=== PATIENT | female | born 1980 | race African-American/Black ===

== ENCOUNTER 2017-04-10 06:23 | Day surgery (SDC) | payer BC ==
[~2017-04-10] VITALS: Ht 170.2 cm; Wt 95.3 kg
[~2017-04-10 06:23] MED LIST: AUGMENTIN875TAB PO; AUGMENTINES600 PO; BACTRIM DS1 TAB PO; BENADRYL 50MG C50 MG PO; CEPHALEXIN500 MG PO; CYCLOBENZAPR10 MG PO; DICLOXACILL500 MG PO; DOXYCYCL HYC100 MG PO; FERR SULFATE325 MG PO; FLEXERIL PO; HYCODAN1 ML OR; HYDROCORTISO2.51 EX; IBUPROFEN600 MG PO; KEFLEX500 M1 PO; LORTAB 7.57.5 MG PO; MEDDOSEPAK PO; MEDROL4 M1 OR; MOTRIN800 MG PO; NAPROSYN500 MG PO; NAPROXEN500 MG PO; NO MEDS; PEPCID20 MG PO; PRENATA9 PO; PROCARDIA10 MG PO; PROTONIX40 M2 PO; RANITIDINE75 MG/5 M1 PO; SOLU-MEDROL125 MG IM; TRIAMCINOLON0.11 EX; ULTRAM50 M1 PO; ZOFRAN4 M1 PO
[2017-04-10] MEDS ORDERED: LORTAB 7.5-3251 TAB PO (10:32)
[2017-04-10 11:33] VITALS: BP 121/62
== END 2017-04-10 11:15 | disposition home or self-care (01) | DRG 337 ==
LOC: ORM 06:23
PROVIDERS: ATTEND Obstetrics & Gynecology
PROC: 0DNS4ZZ (ICD-10-PCS; principal; 2017-04-10)
DX: R10.2 Pelvic and perineal pain (principal); E66.9 Obesity, unspecified; N99.4 Postprocedural pelvic peritoneal adhesions; N94.10 Unspecified dyspareunia; K58.9 Irritable bowel syndrome, unspecified; Z68.34 Body mass index [BMI] 34.0-34.9, adult; Z01.818 Encounter for other preprocedural examination; K21.9 Gastro-esophageal reflux disease without esophagitis; R10.30 Lower abdominal pain, unspecified

== ENCOUNTER 2017-12-06 10:41 | Emergency (ER) | payer BC ==
[~2017-12-06] VITALS: Ht 170.2 cm; Wt 997.0 kg
[~2017-12-06 10:41] MED LIST changes: +LORTAB 7.5-3251 TAB PO
[2017-12-06 12:02] LABS: URINE BILIRUBIN - DIPSTICK NEGATIVE (NEGATIVE); URINE BLOOD DIPSTICK NEGATIVE (NEGATIVE); URINE COLOR YELLOW; URINE GLUCOSE - DIPSTICK NEGATIVE (NEGATIVE); URINE KETONE NEGATIVE (NEGATIVE); URINE LEUK ESTERASE NEGATIVE (NEGATIVE); URINE NITRITE - DIPSTICK NEGATIVE (Negative); URINE PROTEIN - DIPSTICK NEGATIVE (NEG-TRACE); URINE UROBILINOGEN - DIPSTICK 0.2 E.U./dL (0.2)
[2017-12-06 12:10] LABS: URINE CLARITY CLEAR
[2017-12-06 12:19] LABS: ALBUMIN 4.3 g/dL (3.2-5.0); ALKALINE PHOSPHATASE 88 u/l (38-126); ANION GAP 15 (6-22 (CALC)); BILIRUBIN, TOTAL 0.5 mg/dL (0.0-1.4); BUN 8 mg/dL (7-17); BUN/CREATININE RATIO 14 (12-20 (CALC)); CALCIUM 9.8 mg/dL (8.4-10.2); CARBON DIOXIDE 27 mmol/l (22-30); CHLORIDE 104 mmol/l (95-108); CREATININE 0.6 mg/dL (0.5-1.0); GFR > 60 ML/MIN (>=60 (CALC)); GFR FOR AFR.AMER. > 60 ML/MIN (>=60 (CALC)); GLUCOSE 78 mg/dL (65-105); POTASSIUM 3.6 mmol/l (3.5-5.1); SGOT/AST 37 u/l (14-36); SGPT/ALT 39 u/l (9-52); SODIUM 142 mmol/l (137-146); TOTAL PROTEIN 7.1 g/dL (6.3-8.2)
[2017-12-06 13:08] LABS: HEMATOCRIT 37.2 % (37.0-47.0); HEMOGLOBIN 11.9 g/dl (12.0-16.0); IMMATURE GRANULOCYTES 0.2 % (0.0-1.0); MEAN CELL VOLUME 86.9 fL CALC (80.0-100.0); MEAN CORPUSCULAR HGB 27.8 pG CALC (26.0-32.0); NEUT# 2.29 thou/uL (2.00-7.15); RED BLOOD COUNT 4.28 mill/uL (4.20-5.60); RED CELL DISTRI WIDTH 14.6 % (11.5-15.5)
[2017-12-06] MEDS ORDERED: ANUCORT-HC25 MG RE (13:49)
[2017-12-06] MEDS ORDERED: ULTRAM50 M1 PO (13:49)
[2017-12-06 13:57] VITALS: BP 126/87
== END 2017-12-06 14:12 | disposition home or self-care (01) | DRG 392 ==
LOC: ED 10:41
PROVIDERS: Emergency Medicine
DX: K59.00 Constipation, unspecified (principal); K64.9 Unspecified hemorrhoids

== ENCOUNTER 2018-01-11 08:10 | Day surgery (SDC) | payer BC ==
[~2018-01-11] VITALS: Ht 170.2 cm; Wt 94.8 kg
[~2018-01-11 08:10] MED LIST changes: +ANUCORT-HC25 MG RE; +LIPITOR20 MG PO; +PANTOPRAZOLE SO40 MG PO
[2018-01-11 10:58] VITALS: BP 135/70
== END 2018-01-11 11:14 | disposition home or self-care (01) | DRG 394 ==
LOC: ENDO 08:10 → ORM 08:30 → ENDO 10:45
PROVIDERS: ATTEND Internal Medicine Gastroenterology
PROC: 0DBL8ZX Excision of Transverse Colon, Via Natural or Artificial Opening Endoscopic, Diagnostic (ICD-10-PCS; principal; 2018-01-11)
DX: K62.89 Other specified diseases of anus and rectum (principal); K92.1 Melena; K21.9 Gastro-esophageal reflux disease without esophagitis; K59.00 Constipation, unspecified; R10.33 Periumbilical pain; R11.0 Nausea; R14.0 Abdominal distension (gaseous); R63.4 Abnormal weight loss; R19.4 Change in bowel habit; K64.4 Residual hemorrhoidal skin tags; K63.5 Polyp of colon; K64.8 Other hemorrhoids

== ENCOUNTER 2018-04-16 06:57 | Day surgery (SDC) | payer BC ==
[~2018-04-16] VITALS: Ht 170.2 cm; Wt 87.1 kg
[~2018-04-16 06:57] MED LIST changes: +COLACE100 MG PO
[2018-04-16] MEDS ORDERED: PERCOCET 5/325M1 TAB PO (09:18)
[2018-04-16 10:14] VITALS: BP 144/85
== END 2018-04-16 10:50 | disposition home or self-care (01) | DRG 349 ==
LOC: ORM 06:57
PROVIDERS: ATTEND Surgery
PROC: 06BY0ZC Excision of Hemorrhoidal Plexus, Open Approach (ICD-10-PCS; principal; 2018-04-16)
DX: K64.8 Other hemorrhoids (principal)
CPT/HCPCS: C9290

== ENCOUNTER 2018-09-06 06:24 | Day surgery (SDC) | payer BC ==
[~2018-09-06] VITALS: Ht 170.2 cm; Wt 81.6 kg
[~2018-09-06 06:24] MED LIST changes: +ALLERGY RELF10 M3 PO; +PERCOCET 5/325M1 TAB PO; +STOOL SOFTE1 PO
[2018-09-06 08:02] VITALS: BP 124/80
== END 2018-09-06 08:20 | disposition home or self-care (01) | DRG 392 ==
LOC: ENDO 06:24 → ORM 13:15 → ENDO 13:15
PROVIDERS: ATTEND Internal Medicine Gastroenterology
PROC: 0DB98ZX Excision of Duodenum, Via Natural or Artificial Opening Endoscopic, Diagnostic (ICD-10-PCS; principal; 2018-09-06)
PROC: 0DB78ZX Excision of Stomach, Pylorus, Via Natural or Artificial Opening Endoscopic, Diagnostic (ICD-10-PCS; 2018-09-06)
DX: K29.50 Unspecified chronic gastritis without bleeding (principal); K31.7 Polyp of stomach and duodenum; Q40.8 Other specified congenital malformations of upper alimentary tract; K21.9 Gastro-esophageal reflux disease without esophagitis; B96.81 Helicobacter pylori [H. pylori] as the cause of diseases classified elsewhere; Z86.010 Personal history of colon polyps

== ENCOUNTER → 2019-01-10 | Outpatient (REF) | END | disposition home or self-care (01) | DRG 392 | LOC: LABSPEC 08:53 | PROVIDERS: ATTEND Internal Medicine Gastroenterology | DX: K29.70 Gastritis, unspecified, without bleeding (principal); B96.81 Helicobacter pylori [H. pylori] as the cause of diseases classified elsewhere ==

== ENCOUNTER → 2019-01-24 | Outpatient (REF) | END | disposition home or self-care (01) | DRG 392 | LOC: LABSPEC 21:14 | PROVIDERS: ATTEND Internal Medicine Gastroenterology | DX: R19.5 Other fecal abnormalities (principal) ==

== ENCOUNTER 2019-05-06 07:15 | Day surgery (SDC) | payer BC ==
[~2019-05-06] VITALS: Ht 170.2 cm; Wt 80.7 kg
[~2019-05-06 07:15] MED LIST changes: +COLESTIPOL1 GM PO; +LIPITOR10 M1 PO; +MULTI FOR HER PO
[2019-05-06] MEDS ORDERED: PERCOCET 5/325M1 TAB PO (09:16)
[2019-05-06 09:55] VITALS: BP 136/75
== END 2019-05-06 10:15 | disposition home or self-care (01) | DRG 349 ==
LOC: ORM 07:15
PROVIDERS: ATTEND Surgery
PROC: 06BY3ZC Excision of Hemorrhoidal Plexus, Percutaneous Approach (ICD-10-PCS; principal; 2019-05-06)
PROC: 0DJD8ZZ Inspection of Lower Intestinal Tract, Via Natural or Artificial Opening Endoscopic (ICD-10-PCS; 2019-05-06)
DX: K64.4 Residual hemorrhoidal skin tags (principal)
CPT/HCPCS: C9290

== ENCOUNTER 2020-12-23 12:38 | Emergency (ER) | payer BC ==
[~2020-12-23] VITALS: Ht 170.2 cm; Wt 86.5 kg
[2020-12-23] MEDS ORDERED: NAPROXEN500 MG PO (14:14)
[2020-12-23 14:30] VITALS: BP 120/73
== END 2020-12-23 14:30 | disposition home or self-care (01) | DRG 563 ==
LOC: ED 12:38
DX: S93.402A Sprain of unspecified ligament of left ankle, initial encounter (principal); K21.9 Gastro-esophageal reflux disease without esophagitis; W20.8XXA Other cause of strike by thrown, projected or falling object, initial encounter; Y93.G1 Activity, food preparation and clean up; Y92.000 Kitchen of unspecified non-institutional (private) residence as the place of occurrence of the external cause

== ENCOUNTER 2021-04-30 12:28 | Emergency (ER) | payer BC ==
[~2021-04-30] VITALS: Ht 170.2 cm; Wt 81.8 kg
[2021-04-30 13:25] LABS: HEMATOCRIT 37.3 % (37.0-47.0); IMMATURE GRANULOCYTES 0.2 % (0.0-5.0); MEAN CELL VOLUME 88.6 fL CALC (80.0-100.0); MEAN CORPUSCULAR HGB 28.5 pG CALC (26.0-32.0); MEAN CORPUSCULAR HGB CONC 32.2 g/dL CAL (32.0-36.0); NEUT# 3.49 thou/uL (2.00-7.15); RED BLOOD COUNT 4.21 mill/uL (4.20-5.60); RED CELL DISTRI WIDTH 13.7 % (11.5-15.5)
[2021-04-30 13:32] LABS: ALBUMIN 3.8 g/dL (3.2-5.0); ALKALINE PHOSPHATASE 79 u/l (38-126); ANION GAP 9 (6-22 (CALC)); BILIRUBIN, TOTAL 0.4 mg/dL (0.0-1.4); BUN 8 mg/dL (7-17); BUN/CREATININE RATIO 14 (12-20 (CALC)); CARBON DIOXIDE 33 mmol/l (22-30); CHLORIDE 96 mmol/l (95-108); CREATININE 0.6 mg/dL (0.5-1.0); GFR > 60 ML/MIN (>=60 (CALC)); GFR FOR AFR.AMER. > 60 ML/MIN (>=60 (CALC)); POTASSIUM 3.2 mmol/l (3.5-5.1); SGOT/AST 22 u/l (14-36); SODIUM 135 mmol/l (137-146); TOTAL PROTEIN 7.5 g/dL (6.3-8.2)
[2021-04-30 16:30] VITALS: BP 115/63
== END 2021-04-30 16:31 | disposition home or self-care (01) | DRG 313 ==
LOC: ED 12:28
PROVIDERS: Emergency Medicine
DX: R07.89 Other chest pain (principal); R59.0 Localized enlarged lymph nodes; E87.6 Hypokalemia; E78.5 Hyperlipidemia, unspecified; K21.9 Gastro-esophageal reflux disease without esophagitis; Z98.890 Other specified postprocedural states
CPT/HCPCS: Q9967

== ENCOUNTER 2021-08-23 12:20 | Inpatient (IN) | payer BC ==
[~2021-08-23] VITALS: Ht 170.2 cm; Wt 80.0 kg
[2021-08-23 13:33] LABS: HEMATOCRIT 41.3 % (37.0-47.0); HEMOGLOBIN 12.8 g/dl (12.0-16.0); MEAN CELL VOLUME 87.3 fL CALC (80.0-100.0); MEAN CORPUSCULAR HGB 27.1 pG CALC (26.0-32.0); NEUT# 3.03 thou/uL (2.00-7.15); RED BLOOD COUNT 4.73 mill/uL (4.20-5.60); RED CELL DISTRI WIDTH 16.4 % (11.5-15.5)
[2021-08-23 13:44] LABS: ALBUMIN 4.2 g/dL (3.2-5.0); ALKALINE PHOSPHATASE 77 u/l (38-126); BUN 11 mg/dL (7-17); BUN/CREATININE RATIO 18 (12-20 (CALC)); CARBON DIOXIDE 32 mmol/l (22-30); CHLORIDE 99 mmol/l (95-108); CREATININE 0.6 mg/dL (0.5-1.0); GFR > 60 ML/MIN (>=60 (CALC)); GFR FOR AFR.AMER. > 60 ML/MIN (>=60 (CALC)); SODIUM 139 mmol/l (137-146); TOTAL PROTEIN 8.3 g/dL (6.3-8.2)
[2021-08-23 13:45] LABS: ANION GAP 12 (6-22 (CALC)); SGOT/AST 72 u/l (14-36)
[2021-08-23 13:55] LABS: MYOGLOBIN 186 ng/mL (0 - 62)
[2021-08-23 19:21] VITALS: BP 112/81
[2021-08-24] VITALS: BP 99/74
[2021-08-24 00:58] LABS: URINE BILIRUBIN - DIPSTICK NEGATIVE (NEGATIVE); URINE BLOOD DIPSTICK NEGATIVE (NEGATIVE); URINE COLOR YELLOW; URINE GLUCOSE - DIPSTICK NEGATIVE (NEGATIVE); URINE KETONE NEGATIVE (NEGATIVE); URINE LEUK ESTERASE NEGATIVE (NEGATIVE); URINE PH 5.5 (4.5-8.0); URINE PROTEIN - DIPSTICK 100 mg/dL (NEG-TRACE); URINE SPECIFIC GRAVITY 1.025; URINE UROBILINOGEN - DIPSTICK 0.2 E.U./dL (0.2)
[2021-08-24 01:02] LABS: URINE NITRITE - DIPSTICK NEGATIVE (Negative)
[2021-08-24 01:18] LABS: URINE SQUAMOUS EPITHELIAL CELL FEW EPI/hpf (0-FEW)
[2021-08-24 04:00] VITALS: BP 112/79
[2021-08-24 05:35] LABS: ALBUMIN 3.8 g/dL (3.2-5.0); ALKALINE PHOSPHATASE 72 u/l (38-126); ANION GAP 13 (6-22 (CALC)); BILIRUBIN, TOTAL 0.7 mg/dL (0.0-1.4); BUN 15 mg/dL (7-17); BUN/CREATININE RATIO 31 (12-20 (CALC)); C-REACTIVE PROTEIN 4.1 mg/dL (0-0.9); CARBON DIOXIDE 28 mmol/l (22-30); CHLORIDE 104 mmol/l (95-108); CREATININE 0.5 mg/dL (0.5-1.0); GFR > 60 ML/MIN (>=60 (CALC)); GFR FOR AFR.AMER. > 60 ML/MIN (>=60 (CALC)); POTASSIUM 4.3 mmol/l (3.5-5.1); SGOT/AST 50 u/l (14-36); SODIUM 140 mmol/l (137-146); TOTAL PROTEIN 7.2 g/dL (6.3-8.2)
[2021-08-24 05:41] LABS: HEMATOCRIT 39.8 % (37.0-47.0); HEMOGLOBIN 12.3 g/dl (12.0-16.0); IMMATURE GRANULOCYTES 0.5 % (0.0-5.0); MEAN CELL VOLUME 87.5 fL CALC (80.0-100.0); MEAN CORPUSCULAR HGB CONC 30.9 g/dL CAL (32.0-36.0); NEUT# 1.11 thou/uL (2.00-7.15); RED BLOOD COUNT 4.55 mill/uL (4.20-5.60); RED CELL DISTRI WIDTH 16.3 % (11.5-15.5)
[2021-08-24 09:19] VITALS: BP 102/73
[2021-08-24] MEDS ORDERED: KEFLEX500 MG PO (10:36)
[2021-08-24] MEDS ORDERED: DIFLUCAN150 MG PO (10:36)
[2021-08-24] MEDS ORDERED: ALBUTEROL108 MCG/AC IN (10:37)
[2021-08-24] MEDS ORDERED: ATORVASTATIN CA20 MG PO (10:38)
[2021-08-24] MEDS ORDERED: PROMETHAZIN1 PO (10:38)
[2021-08-24 12:00] VITALS: BP 101/67
[2021-08-24 16:11] VITALS: BP 105/70
[2021-08-24 19:00] VITALS: BP 100/71
[2021-08-25 00:09] VITALS: BP 156/72
[2021-08-25 04:00] VITALS: BP 144/71
[2021-08-25 05:26] LABS: HEMATOCRIT 38.3 % (37.0-47.0); HEMOGLOBIN 12.1 g/dl (12.0-16.0); IMMATURE GRANULOCYTES 0.9 % (0.0-5.0); MEAN CELL VOLUME 87.8 fL CALC (80.0-100.0); MEAN CORPUSCULAR HGB 27.8 pG CALC (26.0-32.0); MEAN CORPUSCULAR HGB CONC 31.6 g/dL CAL (32.0-36.0); NEUT# 3.19 thou/uL (2.00-7.15); RED BLOOD COUNT 4.36 mill/uL (4.20-5.60); RED CELL DISTRI WIDTH 16.2 % (11.5-15.5)
[2021-08-25 05:36] LABS: ALBUMIN 3.4 g/dL (3.2-5.0); ALKALINE PHOSPHATASE 63 u/l (38-126); ANION GAP 11 (6-22 (CALC)); BILIRUBIN, TOTAL 0.5 mg/dL (0.0-1.4); BUN 16 mg/dL (7-17); BUN/CREATININE RATIO 38 (12-20 (CALC)); CARBON DIOXIDE 28 mmol/l (22-30); CHLORIDE 105 mmol/l (95-108); CREATININE 0.4 mg/dL (0.5-1.0); GFR > 60 ML/MIN (>=60 (CALC)); GFR FOR AFR.AMER. > 60 ML/MIN (>=60 (CALC)); SGOT/AST 33 u/l (14-36); SODIUM 140 mmol/l (137-146); TOTAL PROTEIN 6.6 g/dL (6.3-8.2)
[2021-08-25 08:21] VITALS: BP 105/67
[2021-08-25 14:57] VITALS: BP 106/65
[2021-08-25 19:00] VITALS: BP 116/71
[2021-08-26 00:02] VITALS: BP 103/65
[2021-08-26 04:00] VITALS: BP 113/66
[2021-08-26 05:27] LABS: HEMATOCRIT 38.4 % (37.0-47.0); HEMOGLOBIN 11.9 g/dl (12.0-16.0); IMMATURE GRANULOCYTES 0.9 % (0.0-5.0); MEAN CELL VOLUME 87.7 fL CALC (80.0-100.0); MEAN CORPUSCULAR HGB 27.2 pG CALC (26.0-32.0); NEUT# 4.71 thou/uL (2.00-7.15); RED BLOOD COUNT 4.38 mill/uL (4.20-5.60); RED CELL DISTRI WIDTH 16.5 % (11.5-15.5)
[2021-08-26 05:54] LABS: ALBUMIN 3.4 g/dL (3.2-5.0); ALKALINE PHOSPHATASE 65 u/l (38-126); ANION GAP 10 (6-22 (CALC)); BILIRUBIN, TOTAL 0.5 mg/dL (0.0-1.4); BUN 16 mg/dL (7-17); BUN/CREATININE RATIO 35 (12-20 (CALC)); C-REACTIVE PROTEIN 0.7 mg/dL (0-0.9); CARBON DIOXIDE 28 mmol/l (22-30); CHLORIDE 107 mmol/l (95-108); CREATININE 0.5 mg/dL (0.5-1.0); GFR > 60 ML/MIN (>=60 (CALC)); GFR FOR AFR.AMER. > 60 ML/MIN (>=60 (CALC)); POTASSIUM 3.9 mmol/l (3.5-5.1); SGOT/AST 25 u/l (14-36); SODIUM 141 mmol/l (137-146); TOTAL PROTEIN 6.5 g/dL (6.3-8.2)
[2021-08-26 08:19] VITALS: BP 108/71
[2021-08-26 11:30] VITALS: BP 101/65
[2021-08-26] MEDS ORDERED: DECADRON2 MG PO (11:34)
[2021-08-26] MEDS ORDERED: PROTONIX40 M2 PO (11:35)
[2021-08-26] MEDS ORDERED: ASPIRIN REGULA325 M1 PO (11:35)
[2021-08-26] MEDS ORDERED: ZITHROMAX250 MG PO (11:35)
[2021-08-26] MEDS ORDERED: VENTOLIN HFA108 MCG IN (11:36)
== END 2021-08-26 16:24 | DRG 177 ==
LOC: ED 12:20 → MS2 16:55
PROVIDERS: Emergency Medicine; Nurse Practitioner; ADMIT Hospitalist; ATTEND Hospitalist
PROC: XW033E5 Introduction of Remdesivir Anti-infective into Peripheral Vein, Percutaneous Approach, New Technology Group 5 (ICD-10-PCS; principal; 2021-08-23)
DX: U07.1 COVID-19 (principal); J12.82 Pneumonia due to coronavirus disease 2019; R09.02 Hypoxemia; K21.9 Gastro-esophageal reflux disease without esophagitis; D72.819 Decreased white blood cell count, unspecified; R74.01 Elevation of levels of liver transaminase levels
CPT/HCPCS: J1650; Q9967

== ENCOUNTER 2021-09-11 06:06 | Emergency (ER) | payer BC ==
[~2021-09-11] VITALS: Ht 170.2 cm; Wt 79.5 kg
[~2021-09-11 06:06] MED LIST changes: +ALBUTEROL108 MCG/AC IN; +ASPIRIN REGULA325 M1 PO; +ATORVASTATIN CA20 MG PO; +DECADRON2 MG PO; +DIFLUCAN150 MG PO; +KEFLEX500 MG PO; +PROMETHAZIN1 PO; +VENTOLIN HFA108 MCG IN; +ZITHROMAX250 MG PO
[2021-09-11 07:39] LABS: HEMOGLOBIN 12.4 g/dl (12.0-16.0); MEAN CELL VOLUME 87.4 fL CALC (80.0-100.0); MEAN CORPUSCULAR HGB 27.8 pG CALC (26.0-32.0); MEAN CORPUSCULAR HGB CONC 31.8 g/dL CAL (32.0-36.0); NEUT# 2.43 thou/uL (2.00-7.15); RED BLOOD COUNT 4.46 mill/uL (4.20-5.60); RED CELL DISTRI WIDTH 16.9 % (11.5-15.5)
[2021-09-11 07:41] LABS: URINE BILIRUBIN - DIPSTICK NEGATIVE (NEGATIVE); URINE BLOOD DIPSTICK NEGATIVE (NEGATIVE); URINE COLOR YELLOW; URINE GLUCOSE - DIPSTICK NEGATIVE (NEGATIVE); URINE KETONE NEGATIVE (NEGATIVE); URINE LEUK ESTERASE NEGATIVE (NEGATIVE); URINE PH 5.5 (4.5-8.0); URINE PROTEIN - DIPSTICK NEGATIVE (NEG-TRACE); URINE SPECIFIC GRAVITY >=1.030; URINE UROBILINOGEN - DIPSTICK 0.2 E.U./dL (0.2)
[2021-09-11 07:43] LABS: URINE NITRITE - DIPSTICK NEGATIVE (Negative)
[2021-09-11 07:52] LABS: ALKALINE PHOSPHATASE 78 u/l (38-126); ANION GAP 10 (6-22 (CALC)); BUN 8 mg/dL (7-17); BUN/CREATININE RATIO 13 (12-20 (CALC)); CARBON DIOXIDE 30 mmol/l (22-30); CHLORIDE 105 mmol/l (95-108); CREATININE 0.6 mg/dL (0.5-1.0); GFR > 60 ML/MIN (>=60 (CALC)); GFR FOR AFR.AMER. > 60 ML/MIN (>=60 (CALC)); POTASSIUM 3.5 mmol/l (3.5-5.1); SGOT/AST 23 u/l (14-36); SODIUM 141 mmol/l (137-146); TOTAL PROTEIN 7.2 g/dL (6.3-8.2)
[2021-09-11 07:55] LABS: BILIRUBIN, TOTAL 0.8 mg/dL (0.0-1.4)
[2021-09-11 08:03] LABS: MYOGLOBIN 15 ng/mL (0 - 62)
[2021-09-11 09:22] VITALS: BP 128/76
== END 2021-09-11 09:19 | disposition home or self-care (01) | DRG 948 ==
LOC: ED 06:06
PROVIDERS: Emergency Medicine
DX: R53.1 Weakness (principal); U09.9 Post COVID-19 condition, unspecified; E86.0 Dehydration; K21.9 Gastro-esophageal reflux disease without esophagitis; E04.9 Nontoxic goiter, unspecified; Z20.822 Contact with and (suspected) exposure to COVID-19

== ENCOUNTER 2021-09-20 07:19 | Emergency (ER) | payer BC ==
[~2021-09-20] VITALS: Ht 170.2 cm; Wt 90.0 kg
[2021-09-20 08:28] LABS: HEMATOCRIT 38.8 % (37.0-47.0); HEMOGLOBIN 12.3 g/dl (12.0-16.0); IMMATURE GRANULOCYTES 0.4 % (0.0-5.0); MEAN CELL VOLUME 88.8 fL CALC (80.0-100.0); MEAN CORPUSCULAR HGB 28.1 pG CALC (26.0-32.0); MEAN CORPUSCULAR HGB CONC 31.7 g/dL CAL (32.0-36.0); NEUT# 2.62 thou/uL (2.00-7.15); RED BLOOD COUNT 4.37 mill/uL (4.20-5.60); RED CELL DISTRI WIDTH 16.7 % (11.5-15.5)
[2021-09-20 08:57] LABS: ALBUMIN 4.1 g/dL (3.2-5.0); ALKALINE PHOSPHATASE 81 u/l (38-126); ANION GAP 16 (6-22 (CALC)); BILIRUBIN, TOTAL 0.8 mg/dL (0.0-1.4); BUN 8 mg/dL (7-17); BUN/CREATININE RATIO 13 (12-20 (CALC)); CARBON DIOXIDE 30 mmol/l (22-30); CHLORIDE 96 mmol/l (95-108); CREATININE 0.6 mg/dL (0.5-1.0); GFR > 60 ML/MIN (>=60 (CALC)); GFR FOR AFR.AMER. > 60 ML/MIN (>=60 (CALC)); SGOT/AST 29 u/l (14-36); SODIUM 138 mmol/l (137-146); TOTAL PROTEIN 7.5 g/dL (6.3-8.2)
[2021-09-20] MEDS ORDERED: MECLIZINE25 MG PO (12:52)
[2021-09-20 12:55] VITALS: BP 123/83
== END 2021-09-20 13:17 | disposition home or self-care (01) | DRG 149 ==
LOC: ED 07:19
PROVIDERS: Family Medicine
DX: R42 Dizziness and giddiness (principal); K21.9 Gastro-esophageal reflux disease without esophagitis; E04.9 Nontoxic goiter, unspecified; Z86.16 Personal history of COVID-19

== ENCOUNTER 2023-02-20 05:57 | Emergency (ER) | payer BC ==
[~2023-02-20] VITALS: Ht 170.2 cm; Wt 86.0 kg
[2023-02-20] VITALS (10 sets, daily range): BP systolic 103–126; BP diastolic 64–86
[~2023-02-20 05:57] MED LIST changes: +MECLIZINE25 MG PO
[2023-02-20 06:39] LABS: BASO% 0.4 % (0-3); EOS% 3.5 % (0-8); HEMATOCRIT 37.3 % (37.0-47.0); HEMOGLOBIN 11.9 g/dl (12.0-16.0); IMMATURE GRANULOCYTES 0.1 % (0.0-5.0); LYMPH% 19.1 % (15-41); MEAN CELL VOLUME 89.9 fL CALC (80.0-100.0); MEAN CORPUSCULAR HGB 28.7 pG CALC (26.0-32.0); MEAN CORPUSCULAR HGB CONC 31.9 g/dL CAL (32.0-36.0); MONO% 8.5 % (2-13); NEUT# 4.66 thou/uL (2.00-7.15); NEUT% 68.4 % (42-76); RED BLOOD COUNT 4.15 mill/uL (4.20-5.60); RED CELL DISTRI WIDTH 13.9 % (11.5-15.5); URINE BILIRUBIN - DIPSTICK NEGATIVE (NEGATIVE); URINE BLOOD DIPSTICK NEGATIVE (NEGATIVE); URINE COLOR YELLOW; URINE GLUCOSE - DIPSTICK NEGATIVE (NEGATIVE); URINE KETONE NEGATIVE (NEGATIVE); URINE PH 5.5 (4.5-8.0); URINE PROTEIN - DIPSTICK NEGATIVE (NEG-TRACE); URINE SPECIFIC GRAVITY 1.025; URINE UROBILINOGEN - DIPSTICK 0.2 E.U./dL (0.2)
[2023-02-20 06:42] LABS: URINE LEUK ESTERASE SMALL (NEGATIVE); URINE NITRITE - DIPSTICK NEGATIVE (Negative)
[2023-02-20 06:49] LABS: ALKALINE PHOSPHATASE 76 u/l (38-126); ANION GAP 10 (6-22 (CALC)); BUN 7 mg/dL (7-17); BUN/CREATININE RATIO 11 (12-20 (CALC)); CARBON DIOXIDE 26 mmol/l (22-30); CHLORIDE 106 mmol/l (95-108); CREATININE 0.7 mg/dL (0.5-1.0); GFR FOR AFR.AMER. > 60 ML/MIN (>=60 (CALC)); GFR OTHER RACES > 60 ML/MIN (>=60 (CALC)); SGOT/AST 21 u/l (14-36); SODIUM 138 mmol/l (137-146); URINE BACTERIA MODERATE hpf; URINE SQUAMOUS EPITHELIAL CELL FEW EPI/hpf (0-FEW)
[2023-02-20 07:00] LABS: BILIRUBIN, TOTAL 0.4 mg/dL (0.02-1.3)
[2023-02-20] MEDS ORDERED: NITROFURANTN100 M2 PO (07:52)
[2023-02-20] MEDS ORDERED: FLEXERIL5 M1 PO (07:56)
[2023-02-20] MEDS ORDERED: MOTRIN400 MG/TAB PO (07:56)
== END 2023-02-20 08:16 | disposition home or self-care (01) | DRG 552 ==
LOC: ED 05:57
PROVIDERS: Emergency Medicine
DX: M54.6 Pain in thoracic spine (principal); R07.89 Other chest pain; R94.31 Abnormal electrocardiogram [ECG] [EKG]; K21.9 Gastro-esophageal reflux disease without esophagitis; Z86.16 Personal history of COVID-19; Z20.822 Contact with and (suspected) exposure to COVID-19

== ENCOUNTER 2023-05-16 04:58 | Emergency (ER) | payer BC ==
[~2023-05-16] VITALS: Ht 170.2 cm; Wt 86.0 kg
[2023-05-16] VITALS (13 sets, daily range): BP systolic 111–131; BP diastolic 74–90
[~2023-05-16 04:58] MED LIST changes: +FLEXERIL5 M1 PO; +MOTRIN400 MG/TAB PO; +NITROFURANTN100 M2 PO
[2023-05-16 05:56] LABS: BASO% 0.3 % (0-3); EOS% 6.5 % (0-8); IMMATURE GRANULOCYTES 1.2 % (0.0-5.0); LYMPH% 22.9 % (15-41); MEAN CELL VOLUME 89.4 fL CALC (80.0-100.0); MEAN CORPUSCULAR HGB 27.3 pG CALC (26.0-32.0); MEAN CORPUSCULAR HGB CONC 30.5 g/dL CAL (32.0-36.0); MONO% 7.5 % (2-13); NEUT# 3.63 thou/uL (2.00-7.15); NEUT% 61.6 % (42-76); RED BLOOD COUNT 3.3 mill/uL (4.20-5.60); RED CELL DISTRI WIDTH 14.2 % (11.5-15.5)
[2023-05-16 06:09] LABS: ALBUMIN 3.5 g/dL (3.2-5.0); ALKALINE PHOSPHATASE 96 u/l (38-126); ANION GAP 10 (6-22 (CALC)); BUN 9 mg/dL (7-17); BUN/CREATININE RATIO 15 (12-20 (CALC)); CARBON DIOXIDE 28 mmol/l (22-30); CHLORIDE 101 mmol/l (95-108); CREATININE 0.6 mg/dL (0.5-1.0); GFR FOR AFR.AMER. > 60 ML/MIN (>=60 (CALC)); GFR OTHER RACES > 60 ML/MIN (>=60 (CALC)); LIPASE 111 u/l (23-300); POTASSIUM 3.7 mmol/l (3.5-5.1); SODIUM 135 mmol/l (137-146)
[2023-05-16 06:11] LABS: BILIRUBIN, TOTAL 0.9 mg/dL (0.02-1.3); HEMATOCRIT 29.5 % (37.0-47.0); SGOT/AST 57 u/l (14-36)
[2023-05-16 06:13] LABS: D-DIMER 1.8 mg/L (0.19-0.60)
[2023-05-16 06:17] LABS: ACT PARTIAL THROMBO TIME 24.3 SECONDS (20.0-32.5); INTERNATIONAL NORMALIZED RATIO 0.9 RATIO (0.7-1.3); PROTHROMBIN TIME 9.1 SECONDS (9.0-12.5)
== END 2023-05-16 09:00 | disposition home or self-care (01) | DRG 313 ==
LOC: ED 04:58
PROVIDERS: Emergency Medicine
DX: R07.9 Chest pain, unspecified (principal); K21.9 Gastro-esophageal reflux disease without esophagitis; E04.9 Nontoxic goiter, unspecified; Z86.16 Personal history of COVID-19; Z98.890 Other specified postprocedural states
CPT/HCPCS: Q9967

== ENCOUNTER 2024-05-14 15:00 | Emergency (ER) | payer BC ==
[~2024-05-14] VITALS: Ht 170.2 cm; Wt 90.0 kg
[~2024-05-14 15:00] MED LIST changes: +HYDROCO/APAP1 TA9 PO
[2024-05-14] MEDS ORDERED: KETOROLAC TROMETHAMINE 30 MG/ML SDV IM ONE (15:50)
[2024-05-14] MEDS ORDERED: MEDDOSEPAK PO (17:01)
[2024-05-14] MEDS ORDERED: ZPAK PO (17:01)
[2024-05-14 17:17] VITALS: BP 120/64; BP 122/61
== END 2024-05-14 17:31 | disposition home or self-care (01) | DRG 866 ==
LOC: ED 15:00
DX: B34.9 Viral infection, unspecified (principal); K21.9 Gastro-esophageal reflux disease without esophagitis; Z20.822 Contact with and (suspected) exposure to COVID-19; Z86.16 Personal history of COVID-19

== ENCOUNTER 2024-10-13 15:22 | Emergency (ER) | payer BC ==
[~2024-10-13] VITALS: Ht 170.2 cm; Wt 95.0 kg
[~2024-10-13 15:22] MED LIST changes: +ZPAK PO
[2024-10-13 16:13] LABS: URINE BILIRUBIN - DIPSTICK Negative (NEGATIVE); URINE BLOOD DIPSTICK Moderate (NEGATIVE); URINE COLOR Yellow; URINE GLUCOSE - DIPSTICK Negative (NEGATIVE); URINE KETONE Negative (NEGATIVE); URINE LEUK ESTERASE Large (NEGATIVE); URINE NITRITE - DIPSTICK Negative (Negative); URINE PROTEIN - DIPSTICK 100 mg/dL (NEG-TRACE); URINE SPECIFIC GRAVITY 1.025; URINE UROBILINOGEN - DIPSTICK 0.2 E.U./dL (0.2)
[2024-10-13 16:17] LABS: URINE WBC >100 WBC/hpf (0-5)
[2024-10-13 16:18] LABS: URINE BACTERIA MANY hpf
[2024-10-13] MEDS ORDERED: CEPHALEXIN500 MG PO (16:41)
[2024-10-13 16:43] VITALS: BP 124/74
[2024-10-15] MEDS ORDERED: MACROBID100 M1 PO (10:51)
== END 2024-10-13 16:59 | disposition home or self-care (01) | DRG 690 ==
LOC: ED 15:22
PROVIDERS: Nurse Practitioner
DX: N39.0 Urinary tract infection, site not specified (principal); B96.20 Unspecified Escherichia coli [E. coli] as the cause of diseases classified elsewhere; K21.9 Gastro-esophageal reflux disease without esophagitis; Z86.16 Personal history of COVID-19